=== PATIENT | male | born 1990 | race Two or more races ===

== ENCOUNTER 2019-09-08 17:26 | Emergency (ER) | payer OTHER ==
[~2019-09-08] VITALS: Ht 172.7 cm; Wt 140.6 kg
[~2019-09-08 17:26] MED LIST: AVALIDE 150-12.1 TA1
== END 2019-09-08 19:28 | disposition home or self-care (01) ==
LOC: ER 17:26
DX: K65.4 Sclerosing mesenteritis (principal)

== ENCOUNTER 2021-12-04 19:42 | Emergency (ER) | payer OTHER ==
[~2021-12-04] VITALS: Ht 172.7 cm; Wt 88.5 kg
[2021-12-04] MEDS ORDERED: PROAIR HFA8.5 GM (19:58)
[2021-12-04] MEDS ORDERED: PROAIR HFA8.5 GM IH (19:58)
[2021-12-04] MEDS ORDERED: ALLEGRA-D 24 H1 EACH PO (19:58)
[2021-12-04] MEDS ORDERED: FLONASE16 GM NS (19:59)
== END 2021-12-04 22:15 | disposition home or self-care (01) ==
LOC: ER 19:42
DX: U07.1 COVID-19 (principal); Z88.6 Allergy status to analgesic agent